=== PATIENT | male | born 1965 | race Caucasian/White ===

== ENCOUNTER 2017-12-18 13:17 | Inpatient (IN) | payer BC ==
[2017-12-18] MEDS ORDERED: LORazepam 2 MG/ML SDV IVPUSH PRN (15:25)
[2017-12-18] MEDS ORDERED: hydrALAZINE 20 MG/ML SDV IVPUSH PRN (15:25)
[2017-12-18] MEDS ORDERED: Metoprolol Tartrate 5 MG/5 ML SDV IVPUSH PRN (15:25)
[2017-12-18] MEDS ORDERED: Albuterol/Ipratropium 3.0-0.5 MG/3 ML Neb Soln NEB PRN (15:26)
[2017-12-18] MEDS ORDERED: Acetaminophen/HYDROcodone 325-5 MG Tab PO PRN (15:26)
[2017-12-18] MEDS ORDERED: Bisacodyl 5 MG Tab PO PRN (15:26)
[2017-12-18] MEDS ORDERED: Polyethylene Glycol 3350 Powder 17 GM Packet PO PRN (15:26)
[2017-12-18] MEDS ORDERED: HYDROmorphone 0.5 MG/0.5 ML Syringe IVPUSH PRN (15:26)
[2017-12-18] MEDS ORDERED: LORazepam 2 MG/ML SDV IV PRN (15:26)
[2017-12-18] MEDS ORDERED: Temazepam 15 MG Cap PO PRN (15:26)
[2017-12-18] MEDS ORDERED: Docusate Sodium 100 MG Cap PO PRN (15:26)
[2017-12-18] MEDS ORDERED: Ondansetron 4 MG/2 ML SDV IV PRN (15:26)
[2017-12-18] MEDS ORDERED: Acetaminophen 325 MG Tab PO PRN (15:26)
[2017-12-18] MEDS ORDERED: Sodium Chloride 0.9% 1,000 ML IV SCH (15:30)
[2017-12-18] MEDS ORDERED: 50% Dextrose in Water 50 ML Syringe IVPUSH PRN (15:37)
[2017-12-18] MEDS ORDERED: Vancomycin 500 MG SDV IV SCH (15:45)
[2017-12-18] MEDS ORDERED: Vancomycin 2 GM in Sodium Chloride 0.9% 500 ML IV ONE (16:00)
[2017-12-18 16:21] LABS: VITAMIN D,25-HYDROXY 11.3 ng/ml (30.0-100.0)
[2017-12-18] MEDS ORDERED: Insulin Lispro 100 Unit/ML 3 ML KwikPen SUBCUT SCH (17:00)
--- NOTE | 2017-12-18 18:37 | PCM.CONS ---
H&P History of Present Illness - General Date of Service: 12/18/17 Admit Problem/Dx: Admission Diagnosis/Problem Admission Diagnosis/Problem Cellulitis and abscess of foot Source of Information: Patient, Old Records, Provider - History of Present Illness Initial Comments - Free Text/Narative: 52 y/o gentleman presents today with one week of left foot pain. He reports the pain has been getting worse over the last week, but became severe enough today that he decided to seek medical treatment. He reports chills a few days ago, but has otherwise been feeling well. He presented to the walk-in clinic, and was sent to the ED. He was seen and admitted to the hospitalist. 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 He denies any trauma to the area. He denies history of any other infections. - Related Data Allergies/Adverse Reactions: Allergies Allergy/AdvReac Type Severity Reaction Status Date / Time No Known Allergies Allergy Verified 12/18/17 13:20 Home Medications: Home Meds Aspirin 81 mg PO BEDTIME #30 tab.chew 12/18/17 [Rx] Empagliflozin [Jardiance] 25 mg PO DAILY #30 tablet 12/18/17 [Rx] Liraglutide [Victoza 3-Lizandro] 18 mg SQ ASDIRECTED #1 pen 12/18/17 [Rx] metFORMIN HCl [Metformin HCl ER] 500 mg PO BID #60 tab.er.24 12/18/17 [Rx] Past Medical History Musculoskeletal History: Reports: Fracture, Other (See Below) Other Musculoskeletal History: L wrist multiple times, toes, fingers, tailbone Neurological History: Reports: Brain Injury Other Neuro History: bruise on brain affecting coordination on L side Endocrine/Metabolic History: Reports: Diabetes, Type II, Obesity/BMI 30+ Dermatologic History: Reports: Cellulitis - Infectious Disease History Infectious Disease History: Reports: None Social & Family History - Family History Family Medical History: Noncontributory - Tobacco Use Smoking Status *Q: Never Smoker Years of Tobacco use: 37 Packs/Tins Daily: 0.5 Second Hand Smoke Exposure: No - Caffeine Use Caffeine Use: Reports: Soda Other Caffeine Use: 3-4 cokes/day - Recreational Drug Use Recreational Drug Use: No H&P Review of Systems - Review of Systems: Review Of Systems: See Below General: Reports: Chills HEENT: Reports: No Symptoms Pulmonary: Reports: Cough (chronic for 1 yr) Cardiovascular: Reports: No Symptoms Gastrointestinal: Reports: No Symptoms Genitourinary: Reports: No Symptoms Musculoskeletal: Reports: Foot Pain Skin: Reports: No Symptoms Psychiatric: Reports: No Symptoms Neurological: Reports: Numbness (bilateral lower extremities) Hematologic/Lymphatic: Reports: No Symptoms Immunologic: Reports: No Symptoms Exam - Exam Exam: See Below - Vital Signs Vital Signs: Last Vital Signs Temp 37.4 C 12/18/17 13:21 Pulse 107 H 12/18/17 13:21 Resp 18 12/18/17 13:21 BP 102/42 L 12/18/17 13:21 Pulse Ox 93 L 12/18/17 13:21 Weight: 183.523 kg - Exam Quality Assessment: No: Supplemental Oxygen General: Alert, Oriented HEENT: Conjunctiva Clear, EOMI Neck: Supple Lungs: Clear to Auscultation, Normal Respiratory Effort Cardiovascular: Regular Rate, Regular Rhythm GI/Abdominal Exam: Soft, Non-Tender, No Distention Extremities: Redness, Other (ulceration on dorsum of left foot with purulent, malodorous discharge; subcutaneous crepitus to the midfoot; dusky blister on the base of third digit on top of foot) Peripheral Pulses: 2+: Dorsalis Pedis (L), Dorsalis Pedis (R) Skin: Warm, Dry Neurological: Cranial Nerves Intact Neuro Extensive - Mental Status: Alert, Oriented x3 - Patient Data Lab Results Last 24 hrs: Laboratory Results - last 24 hr 12/18/17 12/18/17 12/18/17 Range/Units 14:05 14:05 17:00 POC Glucose (70-105) mg/dL Hemoglobin A1c 9.80 H (4.50-6.20) % Vitamin D 25-Hydroxy 11.3 L (30.0-100.0) ng/ml Free T4 1.50 H (0.76-1.46) ng/dL TSH 3rd Generation 1.147 (0.358-3.74) uIU/mL Ur Random Creatinine 159.7 H (30.0-125.0) mg/dL Ur Random Microalbumin 199.9 H (1.3-20.0) mg/L Microalb/Creat Ratio 125.1 H (0-30) mg/g 12/18/17 Range/Units 18:04 POC Glucose 355 H (70-105) mg/dL Hemoglobin A1c (4.50-6.20) % Vitamin D 25-Hydroxy (30.0-100.0) ng/ml Free T4 (0.76-1.46) ng/dL TSH 3rd Generation (0.358-3.74) uIU/mL Ur Random Creatinine (30.0-125.0) mg/dL Ur Random Microalbumin (1.3-20.0) mg/L Microalb/Creat Ratio (0-30) mg/g Result Diagrams: 12/18/17 14:05 12/18/17 14:05 Consult PN Assessment/Plan (1) Diabetic wet gangrene of the foot SNOMED Code(s): 264653607 Code(s): E11.52 - 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 will obtain STAT CT of the leg - IV vancomycin and IV Zosyn - IVF with NS - NPO - CBC, CMP, lactic acid - Pt needs emergent debridement with likely amputation. Pt not a good candidate for OR with our anesthesia resources at [facility] in [place]. Pt newly diagnosed with DM today, unknown cardiac history and has not sought medical treatment. Needs transfer to a higher level center with full anesthesia team and cardiology support - discussed case with hospitalist Dr. Holley, physician extender Dr. Lema and Orthopedic surgeon Dr. Fisher. Accepted transfer to [facility] in [place] Discussed with patient and he voiced understanding Patricia Shaffer MD General Surgery
[2017-12-18] MEDS ORDERED: Iopamidol 755 Mg/ML 100 ML Bottle IVPUSH ONE (18:57)
[2017-12-18] MEDS ORDERED: Piperacillin/Tazobactam 4.5 GM in Sodium Chloride 0.9% 100 ML IV ONE (19:30)
--- NOTE | 2017-12-18 19:35 | PCM.HP ---
H&P History of Present Illness - General Date of Service: 12/18/17 Admit Problem/Dx: Admission Diagnosis/Problem Admission Diagnosis/Problem Cellulitis and abscess of foot Source of Information: Patient, Provider History Limitations: Reports: Physical Impairment - History of Present Illness Initial Comments - Free Text/Narative: This is a 52 yo Morbidly Obese white male with past medical hx/o - Related Data Allergies/Adverse Reactions: Allergies Allergy/AdvReac Type Severity Reaction Status Date / Time No Known Allergies Allergy Verified 12/18/17 13:20 Home Medications: Home Meds Aspirin 81 mg PO BEDTIME #30 tab.chew 12/18/17 [Rx] Empagliflozin [Jardiance] 25 mg PO DAILY #30 tablet 12/18/17 [Rx] Liraglutide [Victoza 3-Lizandro] 18 mg SQ ASDIRECTED #1 pen 12/18/17 [Rx] metFORMIN HCl [Metformin HCl ER] 500 mg PO BID #60 tab.er.24 12/18/17 [Rx] Past Medical History Musculoskeletal History: Reports: Fracture, Other (See Below) Other Musculoskeletal History: L wrist multiple times, toes, fingers, tailbone Neurological History: Reports: Brain Injury Other Neuro History: bruise on brain affecting coordination on L side Endocrine/Metabolic History: Reports: Diabetes, Type II, Obesity/BMI 30+ Dermatologic History: Reports: Cellulitis - Infectious Disease History Infectious Disease History: Reports: None Social & Family History - Family History Family Medical History: Noncontributory - Tobacco Use Smoking Status *Q: Never Smoker Years of Tobacco use: 37 Packs/Tins Daily: 0.5 Second Hand Smoke Exposure: No - Caffeine Use Caffeine Use: Reports: Soda Other Caffeine Use: 3-4 cokes/day - Recreational Drug Use Recreational Drug Use: No H&P Review of Systems - Review of Systems: Review Of Systems: ROS reveals no pertinent complaints other than HPI. Exam - Exam Exam: See Below - Vital Signs Vital Signs: Last Vital Signs Temp 37.4 C 12/18/17 13:21 Pulse 107 H 12/18/17 13:21 Resp 18 12/18/17 13:21 BP 102/42 L 12/18/17 13:21 Pulse Ox 93 L 12/18/17 13:21 Weight: 183.523 kg - Patient Data Lab Results Last 24 hrs: Laboratory Results - last 24 hr 12/18/17 12/18/17 12/18/17 Range/Units 14:05 14:05 14:05 WBC 21.25 H (4.23-9.07) K/mm3 RBC 5.28 (4.63-6.08) M/mm3 Hgb 14.3 (13.7-17.5) gm/L Hct 43.7 (40.1-51.0) % MCV 82.8 (79.0-92.2) fl MCH 27.1 (25.7-32.2) pg MCHC 32.7 (32.2-35.5) g/dl RDW Std Deviation 43.0 (35.1-43.9) fL Plt Count 285 (163-337) K/mm3 MPV 10.2 (9.4-12.3) fl Neut % (Auto) 91.9 H (34.0-67.9) % Lymph % (Auto) 1.8 L (21.8-53.1) % [place] % (Auto) 5.7 (5.3-12.2) % Eos % (Auto) 0 L (0.8-7.0) Baso % (Auto) 0.2 (0.1-1.2) % Neut # (Auto) 19.53 H (1.78-5.38) K/mm3 Lymph # (Auto) 0.38 L (1.32-3.57) K/mm3 [place] # (Auto) 1.21 H (0.30-0.82) K/mm3 Eos # (Auto) 0.01 L (0.04-0.54) K/mm3 Baso # (Auto) 0.04 (0.01-0.08) K/mm3 Manual Slide Review Abnormal smear Sodium (136-145) mEq/L Potassium (3.5-5.1) mEq/L Chloride (98-107) mEq/L Carbon Dioxide (21-32) mEq/L Anion Gap (5-15) BUN (7-18) mg/dL Creatinine (0.7-1.3) mg/dL Est Cr Clr Drug Dosing mL/min Estimated GFR (MDRD) (>60) mL/min BUN/Creatinine Ratio (14-18) Glucose (74-106) mg/dL POC Glucose (70-105) mg/dL Hemoglobin A1c 9.80 H (4.50-6.20) % Calcium (8.5-10.1) mg/dL Total Bilirubin (0.2-1.0) mg/dL AST (15-37) U/L ALT (16-63) U/L Alkaline Phosphatase (46-116) U/L Total Protein (6.4-8.2) g/dl Albumin (3.4-5.0) g/dl Globulin gm/dL Albumin/Globulin Ratio (1-2) Vitamin D 25-Hydroxy 11.3 L (30.0-100.0) ng/ml Free T4 1.50 H (0.76-1.46) ng/dL TSH 3rd Generation 1.147 (0.358-3.74) uIU/mL Ur Random Creatinine (30.0-125.0) mg/dL Ur Random Microalbumin (1.3-20.0) mg/L Microalb/Creat Ratio (0-30) mg/g 12/18/17 12/18/17 12/18/17 Range/Units 14:05 17:00 18:04 WBC (4.23-9.07) K/mm3 RBC (4.63-6.08) M/mm3 Hgb (13.7-17.5) gm/L Hct (40.1-51.0) % MCV (79.0-92.2) fl MCH (25.7-32.2) pg MCHC (32.2-35.5) g/dl RDW Std Deviation (35.1-43.9) fL Plt Count (163-337) K/mm3 MPV (9.4-12.3) fl Neut % (Auto) (34.0-67.9) % Lymph % (Auto) (21.8-53.1) % [place] % (Auto) (5.3-12.2) % Eos % (Auto) (0.8-7.0) Baso % (Auto) (0.1-1.2) % Neut # (Auto) (1.78-5.38) K/mm3 Lymph # (Auto) (1.32-3.57) K/mm3 [place] # (Auto) (0.30-0.82) K/mm3 Eos # (Auto) (0.04-0.54) K/mm3 Baso # (Auto) (0.01-0.08) K/mm3 Manual Slide Review Sodium 130 L (136-145) mEq/L Potassium 4.0 (3.5-5.1) mEq/L Chloride 95 L (98-107) mEq/L Carbon Dioxide 22 (21-32) mEq/L Anion Gap 17.0 H (5-15) BUN 16 (7-18) mg/dL Creatinine 1.4 H (0.7-1.3) mg/dL Est Cr Clr Drug Dosing 74.61 mL/min Estimated GFR (MDRD) 53 (>60) mL/min BUN/Creatinine Ratio 11.4 L (14-18) Glucose 389 H (74-106) mg/dL POC Glucose 355 H (70-105) mg/dL Hemoglobin A1c (4.50-6.20) % Calcium 9.6 (8.5-10.1) mg/dL Total Bilirubin 1.5 H (0.2-1.0) mg/dL AST 11 L (15-37) U/L ALT 20 (16-63) U/L Alkaline Phosphatase 154 H (46-116) U/L Total Protein 7.2 (6.4-8.2) g/dl Albumin 2.3 L (3.4-5.0) g/dl Globulin 4.9 gm/dL Albumin/Globulin Ratio 0.5 L (1-2) Vitamin D 25-Hydroxy (30.0-100.0) ng/ml Free T4 (0.76-1.46) ng/dL TSH 3rd Generation (0.358-3.74) uIU/mL Ur Random Creatinine 159.7 H (30.0-125.0) mg/dL Ur Random Microalbumin 199.9 H (1.3-20.0) mg/L Microalb/Creat Ratio 125.1 H (0-30) mg/g Result Diagrams: 12/18/17 14:05 12/18/17 14:05 Problem List Initiated/Reviewed/Updated: Yes Orders Last 24hrs: Active Orders 24 hr Category Date Time Status Admission Status [Patient Status] [ADT] Routine ADT 12/18/17 15:22 Active Accu Check [Blood Glucose Check, Bedside] [RC] Care 12/18/17 15:36 Active QIDACANDBED Height and Weight [RC] 04 Care 12/18/17 15:26 Active VTE/DVT Education [RC] 09,21 Care 12/18/17 15:26 Active Vital Signs [RC] Q4HR Care 12/18/17 15:26 Active Consult to Case Management/Social Insurance Administrator [CONS] Cons 12/18/17 15:37 Active Routine Consult to Diabetic Nurse Specialist [CONS] Routine Cons 12/18/17 15:26 Active Consult to Vendor Quality Supervisor [CONS] Routine Cons 12/18/17 15:26 Active Consult to Physician [CONS] Routine Cons 12/18/17 15:26 Active Consult to Spiritual Care [CONS] Routine Cons 12/18/17 15:26 Active OT Evaluation and Treatment [CONS] Routine Cons 12/18/17 15:26 Active PT Evaluation and Treatment [CONS] Routine Cons 12/18/17 15:26 Active Consistent Carbohydrate Diet [DIET] Diet 12/18/17 Lunch Active Bone Scan Limited [NM] Routine Exams 12/18/17 15:56 Ordered Lower Leg w Cont Lt [CT] Stat Exams 12/18/17 18:24 Ordered BASIC METABOLIC PANEL,BMP [CHEM] AM Lab 12/19/17 05:11 Ordered BASIC METABOLIC PANEL,BMP [CHEM] AM Lab 12/20/17 05:11 Ordered BASIC METABOLIC PANEL,BMP [CHEM] AM Lab 12/21/17 05:11 Ordered BASIC METABOLIC PANEL,BMP [CHEM] AM Lab 12/22/17 05:11 Ordered BASIC METABOLIC PANEL,BMP [CHEM] AM Lab 12/23/17 05:11 Ordered BASIC METABOLIC PANEL,BMP [CHEM] AM Lab 12/24/17 05:11 Ordered BASIC METABOLIC PANEL,BMP [CHEM] AM Lab 12/25/17 05:11 Ordered C-REACTIVE PROTEIN [CHEM] AM Lab 12/19/17 05:11 Ordered C-REACTIVE PROTEIN [CHEM] AM Lab 12/20/17 05:11 Ordered C-REACTIVE PROTEIN [CHEM] AM Lab 12/21/17 05:11 Ordered C-REACTIVE PROTEIN [CHEM] AM Lab 12/22/17 05:11 Ordered C-REACTIVE PROTEIN [CHEM] AM Lab 12/23/17 05:11 Ordered C-REACTIVE PROTEIN [CHEM] AM Lab 12/24/17 05:11 Ordered C-REACTIVE PROTEIN [CHEM] AM Lab 12/25/17 05:11 Ordered CBC WITH AUTO DIFF [HEME] AM Lab 12/19/17 05:11 Ordered CBC WITH AUTO DIFF [HEME] AM Lab 12/20/17 05:11 Ordered CBC WITH AUTO DIFF [HEME] AM Lab 12/21/17 05:11 Ordered CBC WITH AUTO DIFF [HEME] AM Lab 12/22/17 05:11 Ordered CBC WITH AUTO DIFF [HEME] AM Lab 12/23/17 05:11 Ordered CBC WITH AUTO DIFF [HEME] AM Lab 12/24/17 05:11 Ordered CBC WITH AUTO DIFF [HEME] AM Lab 12/25/17 05:11 Ordered CULTURE BLOOD [BC] Stat Lab 12/18/17 13:58 Received CULTURE BLOOD [BC] Stat Lab 12/18/17 14:05 Received LIPID PANEL [CHEM] AM Lab 12/19/17 05:11 Ordered MAGNESIUM [CHEM] AM Lab 12/19/17 05:11 Ordered MAGNESIUM [CHEM] AM Lab 12/20/17 05:11 Ordered MAGNESIUM [CHEM] AM Lab 12/21/17 05:11 Ordered MAGNESIUM [CHEM] AM Lab 12/22/17 05:11 Ordered MAGNESIUM [CHEM] AM Lab 12/23/17 05:11 Ordered MAGNESIUM [CHEM] AM Lab 12/24/17 05:11 Ordered MAGNESIUM [CHEM] AM Lab 12/25/17 05:11 Ordered Acetaminophen [Tylenol] Med 12/18/17 15:26 Active 650 mg PO Q4H PRN Acetaminophen/HYDROcodone [[place] 325-5 MG] Med 12/18/17 15:26 Active 1 tab PO Q4H PRN Albuterol/Ipratropium [DuoNeb 3.0-0.5 MG/3 ML] Med 12/18/17 15:26 Active 3 ml NEB Q4H PRN Bisacodyl [Dulcolax] Med 12/18/17 15:26 Active 5 mg PO DAILY PRN Dextrose 50% in Water Med 12/18/17 15:37 Active 50 ml IVPUSH ASDIRECTED PRN Docusate Sodium [Colace] Med 12/18/17 15:26 Active 100 mg PO BID PRN Docusate Sodium/Sennosides [Senna Plus] Med 12/18/17 15:26 Active 1 tab PO BID PRN HYDROmorphone [Dilaudid] Med 12/18/17 15:26 Active 0.25 mg IVPUSH Q2H PRN Insulin Lispro [HumaLOG] Med 12/18/17 17:00 Active See Protocol SUBCUT QIDACANDBED LORazepam [Ativan] Med 12/18/17 15:26 Active 1 mg IV Q6H PRN LORazepam [Ativan] Med 12/18/17 15:25 Active 2 mg IVPUSH Q4H PRN Magnesium Rep Pharmacy to Dose [Pharmacy to Dose - Med 12/18/17 15:30 Pending Magnesium Replacement] 1 dose .XX ASDIRECTED Metoprolol Tartrate [Lopressor] Med 12/18/17 15:25 Active 5 mg IVPUSH Q4H PRN Ondansetron [Zofran] Med 12/18/17 15:26 Active 4 mg IV Q6H PRN Piperacillin/Tazobactam [Zosyn] 4.5 gm Med 12/18/17 19:30 Active Sodium Chloride 0.9% [Normal Saline] 100 ml IV ONETIME Piperacillin/Tazobactam [Zosyn] 4.5 gm Med 12/19/17 03:30 Active Sodium Chloride 0.9% [Normal Saline] 100 ml IV Q8H Polyethylene Glycol 3350 [MiraLAX] Med 12/18/17 15:26 Active 17 gm PO DAILY PRN Potassium Rep Pharmacy to Dose [Pharmacy to Dose - Med 12/18/17 15:30 Pending Potassium Replacement] 1 dose .XX ASDIRECTED Saccharomyces Boulardii [Florastor] Med 12/18/17 21:00 Active 250 mg PO BID Sodium Chloride 0.9% [Normal Saline] 1,000 ml Med 12/18/17 15:30 Active IV ASDIRECTED Temazepam [Restoril] Med 12/18/17 15:26 Active 15 mg PO BEDTIME PRN Vancomycin Pharmacy to Dose [Pharmacy to Dose - Med 12/18/17 15:45 Pending Vancomycin] 1 dose .XX ASDIRECTED glipiZIDE [Glucotrol XL] Med 12/18/17 21:00 Active 5 mg PO BID hydrALAZINE [Apresoline] Med 12/18/17 15:25 Active 20 mg IVPUSH Q4H PRN Blood Culture x2 Reflex Set [OM.PC] Stat Oth 12/18/17 15:26 Ordered Schedule Procedure [COMM] Urgent Oth 12/18/17 19:30 Ordered Resuscitation Status Routine Resus Stat 12/18/17 17:30 Ordered Medication Orders Acetaminophen (Tylenol) 650 mg PO Q4H PRN PRN Reason: Pain (Mild 1-3)/fever Hydrocodone Bitart/Acetaminophen ([place] 325-5 Mg) 1 tab PO Q4H PRN PRN Reason: Pain (moderate 4-6) Albuterol/Ipratropium (Duoneb 3.0-0.5 Mg/3 Ml) 3 ml NEB Q4H PRN PRN Reason: Shortness Of Breath/wheezing Bisacodyl (Dulcolax) 5 mg PO DAILY PRN PRN Reason: Constipation Dextrose/Water (Dextrose 50% In Water) 50 ml IVPUSH ASDIRECTED PRN PRN Reason: Hypoglycemia Docusate Sodium (Colace) 100 mg PO BID PRN PRN Reason: Constipation Glipizide (Glucotrol Xl) 5 mg PO BID PAWAN Hydralazine HCl (Apresoline) 20 mg IVPUSH Q4H PRN PRN Reason: Hypertension Hydromorphone HCl (Dilaudid) 0.25 mg IVPUSH Q2H PRN PRN Reason: Pain (severe 7-10) Sodium Chloride (Normal Saline) 1,000 mls @ 125 mls/hr IV ASDIRECTED [facility] Last Admin: 12/18/17 17:16 Dose: 125 mls/hr Piperacillin Sod/Tazobactam (Sod 4.5 gm/ Sodium Chloride) 100 mls @ 25 mls/hr IV Q8H PAWAN Piperacillin Sod/Tazobactam (Sod 4.5 gm/ Sodium Chloride) 100 mls @ 200 mls/hr IV ONETIME ONE Stop: 12/18/17 19:59 Insulin Human Lispro (Humalog) 0 unit SUBCUT QIDACANDBED [facility]; Protocol Last Admin: 12/18/17 18:08 Dose: 10 units Lorazepam (Ativan) 2 mg IVPUSH Q4H PRN PRN Reason: Seizures Lorazepam (Ativan) 1 mg IV Q6H PRN PRN Reason: Anxiety Magnesium Sulfate (Pharmacy To Dose - Magnesium Replacement) 1 dose .XX ASDIRECTED [facility] Metoprolol Tartrate (Lopressor) 5 mg IVPUSH Q4H PRN PRN Reason: Tachycardia Ondansetron HCl (Zofran) 4 mg IV Q6H PRN PRN Reason: Nausea/Vomiting Polyethylene Glycol (Miralax) 17 gm PO DAILY PRN PRN Reason: Constipation Potassium Chloride (Pharmacy To Dose - Potassium Replacement) 1 dose .XX ASDIRECTED [facility] Saccharomyces Boulardii (Florastor) 250 mg PO BID [facility] Senna/Docusate Sodium (Senna Plus) 1 tab PO BID PRN PRN Reason: Constipation Temazepam (Restoril) 15 mg PO BEDTIME PRN PRN Reason: Sleep Vancomycin HCl (Pharmacy To Dose - Vancomycin) 1 dose .XX ASDIRECTED PAWAN
--- NOTE | 2017-12-18 20:09 | CT ---
CT left lower extremity. Technique: Multiple axial sections were obtained of the mid kidney level inferiorly through the right and left lower extremities through the feet. Intravenous contrast was utilized. Findings: Diffuse air is seen within the left foot and ankle as well as air extending superiorly within the lower extremity close to the knee. Soft tissue swelling is noted within the subcutaneous fat as well as skin thickening within the anterior distal left lower extremity with soft tissue swelling also noted into the foot. No right-sided abnormality is seen. No focal fluid collections are seen to indicate drainable abscess. Arterial opacification is nonexistent to comment about arterial stenosis. Impression: 1. Soft tissue swelling on the left side. Diffuse soft tissue air on the left side as noted above. No fluid collection is seen to indicate drainable abscess. Diagnostic code #3
--- NOTE | 2017-12-18 20:55 | PCM.DCSUM1 ---
Discharge Summary - Hospital Course Diagnosis: Stroke: No Modified [place] Scale: No Symptoms at All Modified [place] Scale Score: 0 - Discharge Data Discharge Date: 12/18/17 Discharge Disposition: Home, Self-Care 01 Condition: Fair - Patient Summary/Data Consults: Consultations 12/18/17 15:26 Consult to Diabetic Nurse Specialist [CONS] Routine Consult to Group Insurance Specialist [CONS] Routine Consult to Physician [CONS] Routine Consult to Spiritual Care [CONS] Routine OT Evaluation and Treatment [CONS] Routine PT Evaluation and Treatment [CONS] Routine 12/18/17 15:37 Consult to Case Management/Take Up Operator [CONS] Routine - Discharge Plan Prescriptions/Med Rec: Aspirin 81 mg PO BEDTIME #30 tab.chew Empagliflozin [Jardiance] 25 mg PO DAILY #30 tablet Liraglutide [Victoza 3-Lizandro] 18 mg SQ ASDIRECTED #1 pen metFORMIN HCl [Metformin HCl ER] 500 mg PO BID #60 tab.er.24 Home Medications: Home Meds Aspirin 81 mg PO BEDTIME #30 tab.chew 12/18/17 [Rx] Empagliflozin [Jardiance] 25 mg PO DAILY #30 tablet 12/18/17 [Rx] Liraglutide [Victoza 3-Lizandro] 18 mg SQ ASDIRECTED #1 pen 12/18/17 [Rx] metFORMIN HCl [Metformin HCl ER] 500 mg PO BID #60 tab.er.24 12/18/17 [Rx] Referrals: Froylan Tidwell MD [Primary Care Provider] - - Patient Data Vitals - Most Recent: Last Vital Signs Temp 37.7 C 12/18/17 20:00 Pulse 105 H 12/18/17 20:00 Resp 24 H 12/18/17 20:00 BP 122/70 12/18/17 20:00 Pulse Ox 92 L 12/18/17 20:00 Weight - Most Recent: 183.523 kg I&O - Last 24 hours: Intake & Output 12/18/17 12/18/17 12/18/17 06:59 14:59 22:59 Output Total 400 Balance -400 Lab Results - Last 24 hrs: Laboratory Results - last 24 hr 12/18/17 12/18/17 12/18/17 Range/Units 14:05 14:05 14:05 WBC 21.25 H (4.23-9.07) K/mm3 RBC 5.28 (4.63-6.08) M/mm3 Hgb 14.3 (13.7-17.5) gm/L Hct 43.7 (40.1-51.0) % MCV 82.8 (79.0-92.2) fl MCH 27.1 (25.7-32.2) pg MCHC 32.7 (32.2-35.5) g/dl RDW Std Deviation 43.0 (35.1-43.9) fL Plt Count 285 (163-337) K/mm3 MPV 10.2 (9.4-12.3) fl Neut % (Auto) 91.9 H (34.0-67.9) % Lymph % (Auto) 1.8 L (21.8-53.1) % Rhea % (Auto) 5.7 (5.3-12.2) % Eos % (Auto) 0 L (0.8-7.0) Baso % (Auto) 0.2 (0.1-1.2) % Neut # (Auto) 19.53 H (1.78-5.38) K/mm3 Lymph # (Auto) 0.38 L (1.32-3.57) K/mm3 Rhea # (Auto) 1.21 H (0.30-0.82) K/mm3 Eos # (Auto) 0.01 L (0.04-0.54) K/mm3 Baso # (Auto) 0.04 (0.01-0.08) K/mm3 Manual Slide Review Abnormal smear Sodium (136-145) mEq/L Potassium (3.5-5.1) mEq/L Chloride (98-107) mEq/L Carbon Dioxide (21-32) mEq/L Anion Gap (5-15) BUN (7-18) mg/dL Creatinine (0.7-1.3) mg/dL Est Cr Clr Drug Dosing mL/min Estimated GFR (MDRD) (>60) mL/min BUN/Creatinine Ratio (14-18) Glucose (74-106) mg/dL POC Glucose (70-105) mg/dL Hemoglobin A1c 9.80 H (4.50-6.20) % Calcium (8.5-10.1) mg/dL Total Bilirubin (0.2-1.0) mg/dL AST (15-37) U/L ALT (16-63) U/L Alkaline Phosphatase (46-116) U/L Total Protein (6.4-8.2) g/dl Albumin (3.4-5.0) g/dl Globulin gm/dL Albumin/Globulin Ratio (1-2) Vitamin D 25-Hydroxy 11.3 L (30.0-100.0) ng/ml Free T4 1.50 H (0.76-1.46) ng/dL TSH 3rd Generation 1.147 (0.358-3.74) uIU/mL Ur Random Creatinine (30.0-125.0) mg/dL Ur Random Microalbumin (1.3-20.0) mg/L Microalb/Creat Ratio (0-30) mg/g 12/18/17 12/18/17 12/18/17 Range/Units 14:05 17:00 18:04 WBC (4.23-9.07) K/mm3 RBC (4.63-6.08) M/mm3 Hgb (13.7-17.5) gm/L Hct (40.1-51.0) % MCV (79.0-92.2) fl MCH (25.7-32.2) pg MCHC (32.2-35.5) g/dl RDW Std Deviation (35.1-43.9) fL Plt Count (163-337) K/mm3 MPV (9.4-12.3) fl Neut % (Auto) (34.0-67.9) % Lymph % (Auto) (21.8-53.1) % Rhea % (Auto) (5.3-12.2) % Eos % (Auto) (0.8-7.0) Baso % (Auto) (0.1-1.2) % Neut # (Auto) (1.78-5.38) K/mm3 Lymph # (Auto) (1.32-3.57) K/mm3 Rhea # (Auto) (0.30-0.82) K/mm3 Eos # (Auto) (0.04-0.54) K/mm3 Baso # (Auto) (0.01-0.08) K/mm3 Manual Slide Review Sodium 130 L (136-145) mEq/L Potassium 4.0 (3.5-5.1) mEq/L Chloride 95 L (98-107) mEq/L Carbon Dioxide 22 (21-32) mEq/L Anion Gap 17.0 H (5-15) BUN 16 (7-18) mg/dL Creatinine 1.4 H (0.7-1.3) mg/dL Est Cr Clr Drug Dosing 74.61 mL/min Estimated GFR (MDRD) 53 (>60) mL/min BUN/Creatinine Ratio 11.4 L (14-18) Glucose 389 H (74-106) mg/dL POC Glucose 355 H (70-105) mg/dL Hemoglobin A1c (4.50-6.20) % Calcium 9.6 (8.5-10.1) mg/dL Total Bilirubin 1.5 H (0.2-1.0) mg/dL AST 11 L (15-37) U/L ALT 20 (16-63) U/L Alkaline Phosphatase 154 H (46-116) U/L Total Protein 7.2 (6.4-8.2) g/dl Albumin 2.3 L (3.4-5.0) g/dl Globulin 4.9 gm/dL Albumin/Globulin Ratio 0.5 L (1-2) Vitamin D 25-Hydroxy (30.0-100.0) ng/ml Free T4 (0.76-1.46) ng/dL TSH 3rd Generation (0.358-3.74) uIU/mL Ur Random Creatinine 159.7 H (30.0-125.0) mg/dL Ur Random Microalbumin 199.9 H (1.3-20.0) mg/L Microalb/Creat Ratio 125.1 H (0-30) mg/g Med Orders - Current: Current Medications Acetaminophen (Tylenol) 650 mg PO Q4H PRN PRN Reason: Pain (Mild 1-3)/fever Hydrocodone Bitart/Acetaminophen ([place] 325-5 Mg) 1 tab PO Q4H PRN PRN Reason: Pain (moderate 4-6) Albuterol/Ipratropium (Duoneb 3.0-0.5 Mg/3 Ml) 3 ml NEB Q4H PRN PRN Reason: Shortness Of Breath/wheezing Bisacodyl (Dulcolax) 5 mg PO DAILY PRN PRN Reason: Constipation Dextrose/Water (Dextrose 50% In Water) 50 ml IVPUSH ASDIRECTED PRN PRN Reason: Hypoglycemia Docusate Sodium (Colace) 100 mg PO BID PRN PRN Reason: Constipation Glipizide (Glucotrol Xl) 5 mg PO BID [facility] Hydralazine HCl (Apresoline) 20 mg IVPUSH Q4H PRN PRN Reason: Hypertension Hydromorphone HCl (Dilaudid) 0.25 mg IVPUSH Q2H PRN PRN Reason: Pain (severe 7-10) Sodium Chloride (Normal Saline) 1,000 mls @ 125 mls/hr IV ASDIRECTED [facility] Last Admin: 12/18/17 17:16 Dose: 125 mls/hr Piperacillin Sod/Tazobactam (Sod 4.5 gm/ Sodium Chloride) 100 mls @ 25 mls/hr IV Q8H [facility] Insulin Human Lispro (Humalog) 0 unit SUBCUT QIDACANDBED [facility]; Protocol Last Admin: 12/18/17 18:08 Dose: 10 units Lorazepam (Ativan) 2 mg IVPUSH Q4H PRN PRN Reason: Seizures Lorazepam (Ativan) 1 mg IV Q6H PRN PRN Reason: Anxiety Magnesium Sulfate (Pharmacy To Dose - Magnesium Replacement) 1 dose .XX ASDIRECTED [facility] Metoprolol Tartrate (Lopressor) 5 mg IVPUSH Q4H PRN PRN Reason: Tachycardia Ondansetron HCl (Zofran) 4 mg IV Q6H PRN PRN Reason: Nausea/Vomiting Polyethylene Glycol (Miralax) 17 gm PO DAILY PRN PRN Reason: Constipation Potassium Chloride (Pharmacy To Dose - Potassium Replacement) 1 dose .XX ASDIRECTED [facility] Saccharomyces Boulardii (Florastor) 250 mg PO BID [facility] Senna/Docusate Sodium (Senna Plus) 1 tab PO BID PRN PRN Reason: Constipation Temazepam (Restoril) 15 mg PO BEDTIME PRN PRN Reason: Sleep Vancomycin HCl (Pharmacy To Dose - Vancomycin) 1 dose .XX ASDIRECTED [facility] Discontinued Medications Vancomycin HCl 2 gm/ Sodium (Chloride) 500 mls @ 250 mls/hr IV ONETIME ONE Stop: 12/18/17 17:59 Last Admin: 12/18/17 17:15 Dose: 250 mls/hr Piperacillin Sod/Tazobactam (Sod 4.5 gm/ Sodium Chloride) 100 mls @ 200 mls/hr IV ONETIME ONE Stop: 12/18/17 19:59 Iopamidol (Isovue-370 (76%)) 100 ml IVPUSH ONETIME ONE Stop: 12/18/17 18:58 Last Admin: 12/18/17 19:30 Dose: 100 ml Magnesium Sulfate (Pharmacy To Dose - Magnesium Replacement) 1 dose .XX ASDIRECTED [facility]
[2017-12-18] MEDS ORDERED: glipiZIDE 5 MG Tab.ER PO SCH (21:00)
[2017-12-18] MEDS ORDERED: Saccharomyces Boulardii (Probiotic) 250 MG Cap PO SCH (21:00)
[2017-12-19] MEDS ORDERED: Piperacillin/Tazobactam 4.5 GM in Sodium Chloride 0.9% 100 ML IV SCH (03:30)
[2017-12-19] MEDS ORDERED: Vancomycin 2 GM in Sodium Chloride 0.9% 500 ML IV SCH (05:00)
== END 2017-12-18 20:48 | DRG 197 ==
LOC: JD.ED 13:17 → JD.MS 15:22
PROVIDERS: ADMIT Internal Medicine; ATTEND Internal Medicine
DX: E11.52 Type 2 diabetes mellitus with diabetic peripheral angiopathy with gangrene (principal); I96 Gangrene, not elsewhere classified; E11.621 Type 2 diabetes mellitus with foot ulcer; L03.116 Cellulitis of left lower limb; Z68.43 Body mass index [BMI] 50.0-59.9, adult; L97.529 Non-pressure chronic ulcer of other part of left foot with unspecified severity; E66.01 Morbid (severe) obesity due to excess calories; L02.612 Cutaneous abscess of left foot; Z79.84 Long term (current) use of oral hypoglycemic drugs; Z79.82 Long term (current) use of aspirin; Z79.899 Other long term (current) drug therapy
CPT/HCPCS: 36415; 73701-26-LT; 73701-LT; 80053; 82043; 82306; 82962; 83036; 83605; 84439; 84443; 85025; 87040; J1815; J2543; J3370; J7030; J7040; Q9967

== ENCOUNTER 2023-10-01 11:12 | Emergency (ER) | payer BC ==
[2023-10-01] MEDS: cefTRIAXone 2 GM in Sodium Chloride 0.9% 100 ML IV ONE (12:10)
[2023-10-01] MEDS: Sulfamethoxazole/Trimethoprim 800-160 MG Tab PO ONE (12:10)
[2023-10-01] MEDS: Sodium Chloride 0.9% 10 ML Syringe FLUSH PRN (12:11)
[2023-10-01 12:21] LABS: BASOPHILS ABSOLUTE AUTO 0.1 K/mm3 (0.0-0.2); BASOPHILS PERCENT AUTO 0.7 % (0.0-1.0); EOSINOPHILS ABSOLUTE AUTO 0.3 K/mm3 (0.0-0.4); EOSINOPHILS PERCENT AUTO 2.7 % (0.0-6.0); HEMOGLOBIN 14.5 gm/dl (14.0-18.0); IMMATURE GRAN ABSOLUTE AUTO 0.12 K/mm3 (0.00-0.05); IMMATURE GRAN PERCENT AUTO 1.3 % (0.0-0.4); LYMPHOCYTES ABSOLUTE AUTO 1.2 K/mm3 (1.0-4.8); LYMPHOCYTES PERCENT AUTO 13.5 % (24.0-44.0); MEAN CORPUSCULAR HEMOGLOBIN 27.7 pg (28.0-32.0); MEAN CORPUSCULAR HGB CONC 32.2 g/dl (32.0-36.0); MEAN CORPUSCULAR VOLUME 85.9 fl (83.0-99.0); MEAN PLATELET VOLUME 8.3 fl (9.4-12.4); MONOCYTES ABSOLUTE AUTO 0.5 K/mm3 (0.0-0.8); MONOCYTES PERCENT AUTO 5.1 % (0.0-8.0); NEUTROPHILS PERCENT AUTO 76.7 % (41.0-71.0); PLATELET COUNT,PLT 318 K/mm3 (150-400); RED BLOOD CELL COUNT 5.24 M/mm3 (4.52-5.90); WHITE BLOOD CELL COUNT,WBC 9.13 K/mm3 (3.9-11.3)
[2023-10-01 12:46] LABS: A/G RATIO 0.7 (1-2); ALBUMIN 2.7 g/dl (3.4-5.0); ANION GAP 12.4 (5-15); BILIRUBIN TOTAL 0.2 mg/dL (0.2-1.0); BUN/CREATININE RATIO 16.7 (14-18); C-REACTIVE PROTEIN 3.32 mg/dL (<0.30); CALCIUM 10.2 mg/dL (8.5-10.1); CREATININE 1.2 mg/dL (0.7-1.3); EST CRCL DRUG DOSING (CG) 81.17 mL/min; POTASSIUM,K 4.4 mEq/L (3.5-5.1); PROTEIN TOTAL,TP 6.7 g/dl (6.4-8.2)
== END 2023-10-01 13:40 | disposition home or self-care (01) ==
LOC: JD.ED 11:12
DX: L03.116 Cellulitis of left lower limb (principal); L97.809 Non-pressure chronic ulcer of other part of unspecified lower leg with unspecified severity; E66.01 Morbid (severe) obesity due to excess calories; E11.9 Type 2 diabetes mellitus without complications; F17.200 Nicotine dependence, unspecified, uncomplicated; Z79.82 Long term (current) use of aspirin; Z79.84 Long term (current) use of oral hypoglycemic drugs; Z79.899 Other long term (current) drug therapy; Z68.43 Body mass index [BMI] 50.0-59.9, adult
CPT/HCPCS: 36415; 80053; 85025; 86140; 96365; 99283; A9270; J0696; J3490

== ENCOUNTER 2024-04-26 11:22 | Emergency (ER) | payer BC ==
[2024-04-26 12:05] LABS: BASOPHILS PERCENT AUTO 0.3 % (0.0-1.0); EOSINOPHILS ABSOLUTE AUTO 0.1 K/mm3 (0.0-0.4); EOSINOPHILS PERCENT AUTO 1.1 % (0.0-6.0); HEMATOCRIT 45.2 % (42.0-52.0); HEMOGLOBIN 14.6 gm/dl (14.0-18.0); IMMATURE GRAN ABSOLUTE AUTO 0.06 K/mm3 (0.00-0.05); IMMATURE GRAN PERCENT AUTO 0.5 % (0.0-0.4); LYMPHOCYTES ABSOLUTE AUTO 1.1 K/mm3 (1.0-4.8); LYMPHOCYTES PERCENT AUTO 8.7 % (24.0-44.0); MEAN CORPUSCULAR HEMOGLOBIN 27.9 pg (28.0-32.0); MEAN CORPUSCULAR HGB CONC 32.3 g/dl (32.0-36.0); MEAN CORPUSCULAR VOLUME 86.4 fl (83.0-99.0); MEAN PLATELET VOLUME 9.4 fl (9.4-12.4); MONOCYTES PERCENT AUTO 8.4 % (0.0-8.0); NEUTROPHILS ABSOLUTE AUTO 9.9 K/mm3 (1.8-7.7); RED BLOOD CELL COUNT 5.23 M/mm3 (4.52-5.90); WHITE BLOOD CELL COUNT,WBC 12.22 K/mm3 (3.9-11.3)
[2024-04-26 12:08] LABS: PLATELET COUNT,PLT 214 K/mm3 (150-400)
[2024-04-26] MEDS: Silver Sulfadiazine 1% Crm 400 GM Jar TOP ONE (12:53)
[2024-04-26] MEDS: cefTRIAXone 1 GM, Lidocaine 1% 2.1 ML IM ONE (12:54)
== END 2024-04-26 13:10 | disposition home or self-care (01) ==
LOC: JD.ED 11:22
DX: T25.221A Burn of second degree of right foot, initial encounter (principal); E11.621 Type 2 diabetes mellitus with foot ulcer; L97.519 Non-pressure chronic ulcer of other part of right foot with unspecified severity; E66.9 Obesity, unspecified; F17.210 Nicotine dependence, cigarettes, uncomplicated; Z68.43 Body mass index [BMI] 50.0-59.9, adult; Z79.82 Long term (current) use of aspirin; Z79.84 Long term (current) use of oral hypoglycemic drugs; Z79.899 Other long term (current) drug therapy; X12.XXXA Contact with other hot fluids, initial encounter
CPT/HCPCS: 36415; 85025; 93971; 96372; 99283; A9270; J0696; 99284; J2003